=== PATIENT | female | born 1985 | race Caucasian/White ===

== ENCOUNTER 2017-02-02 18:01 | Emergency (ER) | payer MEDICAID ==
[~2017-02-02 18:01] MED LIST: ADDE30TA PO; DIAZ10TA PO; HYOS0.128 PO; METO25TA6 PO; PANT40TA3 PO; RANI150T PO; ZOFR8TAB PO
[2017-02-02 18:04] VITALS: BP 150/69; PULSE 116; RESP 18; TEMP 97.8; O2SAT 98
[2017-02-02] MEDS ORDERED: HYDROmorphone HCL PF 1 MG/ML VIAL IV PUSH ONE (19:30)
[2017-02-02] MEDS ORDERED: ONDANSETRON HCL 4 MG/2 ML VIAL IV PUSH ONE (19:30)
--- NOTE | 2017-02-02 19:32 | PD ---
HPI Chief Complaint: Musculoskeletal Complaint Time Seen by Provider: 19:20 Travel History International Travel<30 days: No Contact w/Intl Traveler<30days: No Traveled to known affect area: No History of Present Illness HPI 31-year-old female presents to the emergency department by private transportation for complaint of severe right upper extremity pain. Patient states that she felt completely normal and well on Tuesday evening when she went to bed. Patient reports that on Tuesday upon awakening she had a severe headache and right-sided neck pain and felt like fluid was draining from her head down into her neck and then noted development of right upper extremity pain. Subsequently patient has continued to have right upper extremity pain. Patient denies any swelling redness pallor or coolness. Patient denies any known trauma however she did awaken on Tuesday after having slept on her right upper extremity overnight. Patient states she has severe pain at the elbow and increased pain with range of motion of the elbow "not in the elbow but above and below the elbow". Patient has not noticed any deformity or swelling at the elbow. Patient denies any numbness, tingling, or weakness of the right upper extremity but does note severe pain with attempted range of motion of the right upper extremity. Patient denies any previous history of injury to the right upper extremity or to her neck and denies history of chronic headache. Patient states she has no headache at this time no visual disturbance yesterday she did have an episode of vomiting and took a Zofran. Patient has prescription Zofran for history of gastritis and possible gallbladder disease. Patient also took Aleve this morning at 10 AM. Patient awakened with headache yesterday morning has no headache today. Patient did not describe headache as thunderclap but sudden onset but was worse over for her. Patient denies any neck pain or stiffness at this time although did note right-sided neck pain yesterday with pain on range of motion yesterday. Patient denies any fever or chills. Patient denies any left upper extremity symptoms. Patient denies any lower extremity numbness tingling or weakness. Patient denies any injury. Patient denies any substance use. Patient denies any upper or lower back pain. Right upper extremity pain 8/10 in intensity. Patient holds her right upper extremity in abduction and elbow flexion for comfort. [facility] Past Medical History Narrative Medical Gastritis, gallbladder disease, kidney stones, ADHD, anxiety, hypertension, Ab1; occasional alcohol use, no tobacco use; nursing notes reviewed ADHD: Yes Anxiety: Yes Diminished Hearing: No Gastrointestinal Disorders: Yes (FREQUENT GASTRITIS) GERD: Yes Hypertension: Yes Kidney Stones: Yes Tetanus Vaccination: Unknown Influenza Vaccination: No ?: Not LMP: 01/21/17 : 2 Para: 1 Miscarriage: 1 Past Surgical History Surgical History: No Previous Surgery Social History Alcohol Use: Yes (VERY RARE) Tobacco Use: No Substance Use: No Allergies-Medications (Allergen,Severity, Reaction): Coded Allergies: penicillin G (Unverified Allergy, Mild, 02/02/17) Reported Meds & Prescriptions Reported Meds & Active Scripts Active Reported Hyoscyamine (Hyoscyamine Sulfate) 0.125 Mg Tab 0.125 Mg PO Q6H Ranitidine (Ranitidine HCl) 150 Mg Tab 150 Mg PO DAILY Metoprolol Succinate ER 24 HR (Metoprolol Succinate) 25 Mg Tab 25 Mg PO DAILY Diazepam 10 Mg Tab 10 Mg PO HS PRN Adderall (Amphetamine-Dextroamphetamine) 30 Mg Tab 30 Mg PO BID Avoid late evening doses. Space doses at least 4 to 6 hours if more than once/day dosing. Zofran (Ondansetron HCl) 8 Mg Tab 8 Mg PO DIRECTED Pantoprazole (Pantoprazole Sodium) 40 Mg Tab 40 Mg PO DAILY Review of Systems Except as stated in HPI: all other systems reviewed are Neg General / Constitutional: No: Fever, Chills Eyes: No: Diploplia HENT: Positive: Headaches, Neck Stiffness, Neck Pain (right sidedd) Cardiovascular: No: Chest Pain or Discomfort Respiratory: No: Shortness of Breath Gastrointestinal: Positive: Nausea, Vomiting (x1) Genitourinary: No: Dysuria, Flank Pain Musculoskeletal: Positive: Myalgias, Arthralgias, Limited ROM (RUE), Cramping, Pain (RUE), No: Weakness, Edema Skin: No Rash Neurologic: Positive: Headache (yesterday), No: Weakness, Dizziness, Syncope, Focal Abnormalities, Coordination Problem, Change in Mentation, Slurred Speech, Paresthesia, Seizures, Sensory Disturbance Psychiatric: Positive: Anxiety Hematologic/Lymphatic: No: Lymph Node Enlargement Physical Exam Narrative GENERAL: SKIN: Warm and dry. HEAD: Atraumatic. Normocephalic. EYES: Pupils equal and round. No scleral icterus. No injection or drainage. ENT: No nasal bleeding or discharge. Mucous membranes pink and moist. NECK: Trachea midline. No JVD. CARDIOVASCULAR: Regular rate and rhythm. RESPIRATORY: No accessory muscle use. Clear to auscultation. Breath sounds equal bilaterally. GASTROINTESTINAL: Abdomen soft, non-tender, nondistended. Hepatic and splenic margins not palpable. MUSCULOSKELETAL: Extremities without clubbing, cyanosis, or edema. No obvious deformities. 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 Patient holds right upper extremity in position of comfort with abduction and elbow flexion. No axillary lymphadenopathy. No exacerbation of symptoms with percussion over the ulnar nerve. NEUROLOGICAL: Awake and alert. No obvious cranial nerve deficits. Motor grossly within normal limits. Five out of 5 muscle strength in the arms and legs. Normal speech. PSYCHIATRIC: Appropriate mood and affect; insight and judgment normal. Data Data Last Documented VS Vital Signs Date Time Temp Pulse Resp B/P Pulse Ox O2 Delivery O2 Flow Rate FiO2 02/02/17 20:45 18 02/02/17 18:04 97.8 116 150/69 98 Room Air Orders ^ Saline Lock (02/02/17 19:20) Ct Brain W/O Iv Contrast(Rout) (02/02/17 ) Ct Cerv Spine W/O Contrast (02/02/17 ) Complete Blood Count With Diff (02/02/17 19:20) Basic Metabolic Panel (Bmp) (02/02/17 19:20) Ondansetron Inj (Zofran Inj) (02/02/17 19:30) Ed Urine Pregnancytest Poc (02/02/17 19:20) Hydromorphone Pf Inj (Dilaudid Pf Inj) (02/02/17 19:30) Elbow, Complete (4 Vws) (02/02/17 ) Ketorolac Inj (Toradol Inj) (02/02/17 21:30) Dexamethasone Inj (Decadron Inj) (02/02/17 22:15) Labs Laboratory Tests Test 02/02/17 19:35 White Blood Count 10.6 TH/MM3 Red Blood Count 5.22 MIL/MM3 Hemoglobin 15.9 GM/DL Hematocrit 46.9 % Mean Corpuscular Volume 89.8 FL Mean Corpuscular Hemoglobin 30.5 PG Mean Corpuscular Hemoglobin 33.9 % Concent Red Cell Distribution Width 12.3 % Platelet Count 349 TH/MM3 Mean Platelet Volume 7.8 FL Neutrophils (%) (Auto) 64.9 % Lymphocytes (%) (Auto) 25.6 % Monocytes (%) (Auto) 7.8 % Eosinophils (%) (Auto) 1.3 % Basophils (%) (Auto) 0.4 % Neutrophils # (Auto) 7.0 TH/MM3 Lymphocytes # (Auto) 2.7 TH/MM3 Monocytes # (Auto) 0.8 TH/MM3 Eosinophils # (Auto) 0.1 TH/MM3 Basophils # (Auto) 0.0 TH/MM3 CBC Comment DIFF FINAL Differential Comment Sodium Level 138 MEQ/L Potassium Level 3.4 MEQ/L Chloride Level 105 MEQ/L Carbon Dioxide Level 25.8 MEQ/L Anion Gap 7 MEQ/L Blood Urea Nitrogen 15 MG/DL Creatinine 0.68 MG/DL Estimat Glomerular Filtration 100 ML/MIN Rate Random Glucose 94 MG/DL Calcium Level 9.3 MG/DL MDM Medical Decision Making Medical Screen Exam Complete: Yes Emergency Medical Condition: Yes Medical Record Reviewed: Yes Interpretation(s) Last Impressions Head CT 02/02/17 0000 Signed Impressions: Service Date/Time: Thursday, February 02, 2017 20:24 - CONCLUSION: Normal examination. Viet Bryson MD Elbow X-Ray 02/02/17 0000 Signed Impressions: Service Date/Time: Thursday, February 02, 2017 19:39 - CONCLUSION: No acute disease. Viet Bryson MD Cervical Spine CT 02/02/17 0000 Signed Impressions: Service Date/Time: Thursday, February 02, 2017 20:24 - CONCLUSION: Normal examination. Viet Bryson MD CBC & BMP Diagram 02/02/17 19:35 Differential Diagnosis Musculoskeletal pain, cephalgia, cervical radiculopathy, neurapraxia, ulnar neuropathy, brachial plexopathy; also to consider septic arthritis although no focal joint pain or range of motion pain swelling redness or warmth and no findings for compartment syndrome and no injury. Narrative Course IV access obtained specimens collected and sent for resulting Patient administered Dilaudid 0.5 mg IV and Zofran 4 mg IV [id number] hCG negative Lab values in normal range CT brain and cervical spine imaging has been performed but reading remains pending; patient reports clinically improved. At 10:30 PM patient with marked improvement with range of motion and decreased symptoms affecting the right upper extremity no neck symptoms at this time no headache or head complaints at this time patient appears stable for outpatient management provided sling and will be given prescription for Lortab 5/325 as well as Medrol Dosepak area patient encouraged to use moist heat to the right upper extremity for the next 12-24 hours and then to follow-up with primary care provider. Patient encouraged to monitor temperature for with thermometer and return to the emergency department for increasing pain fever or any concerns No work 2 days Diagnosis Primary Impression: Musculoskeletal arm pain Qualified Code: M79.601 - Musculoskeletal pain of right upper extremity Referrals: Primary Care Physician 1 day Patient Instructions: Narcotic given in the ED, General Instructions Departure Forms: Tests/Procedures, Work Release Special Instructions: No work 2 days Additional Instructions: Take medication as prescribed Apply moist heat to right upper extremity Use sling No work 2 days Monitor temperature every 4 hours with thermometer take acetaminophen/Tylenol every 4 hours as needed for fever 100.4F or greater Follow-up with primary care provider call office in a.m. to schedule follow-up appointment this week Return to the emergency department for any concerns or change in condition such as fever or increased pain Med/Other Pt SpecificInfo: Prescription(s) given Scripts Methylprednisolone Dosepak (Medrol Dosepak)4 Mg Dspk4 Mg PO DIRECTED #1 DSPK Ref 0 Per Pharmacist direction Prov:Rosario Soto MD 02/02/17 Hydrocodone-Acetaminophen (Lortab)5-325 Mg Tab1 Tab PO Q6H PRN (PAIN) #10 TAB Ref 0 Prov:Rosario Soto MD 02/02/17 Disposition: 01 DISCHARGE HOME Condition: Stable Rosario Soto MD Feb 02, 2017 19:32
[2017-02-02 19:47] LABS: BASOPHIL % 0.4 % (0.0-2.0); EOSINOPHIL # 0.1 TH/MM3 (0-0.4); EOSINOPHIL % 1.3 % (0.0-4.0); HEMATOCRIT 46.9 % (35.0-46.0); HEMO FLAGS DIFF FINAL; LYMPH % 25.6 % (9.0-44.0); LYMPHOCYTE # 2.7 TH/MM3 (1.0-4.8); MEAN CELL VOLUME 89.8 FL (80.0-100.0); MEAN CORPUSCULAR HEMOGLOBIN 30.5 PG (27.0-34.0); MEAN CORPUSCULAR HGB CONC 33.9 % (32.0-36.0); MONO % 7.8 % (0.0-8.0); NEUT % 64.9 % (16.0-70.0); PLATELET COUNT 349 TH/MM3 (150-450); RED BLOOD COUNT 5.22 MIL/MM3 (4.00-5.30); RED CELL DISTRIBUTION WIDTH 12.3 % (11.6-17.2); WHITE BLOOD COUNT 10.6 TH/MM3 (4.0-11.0)
[2017-02-02 19:54] LABS: POTASSIUM 3.4 MEQ/L (3.5-5.1)
--- NOTE | 2017-02-02 19:56 | RADRPT ---
EXAM DATE/TIME: 02/02/2017 19:39 [facility] COMPARISON: No previous studies available for comparison. INDICATIONS : Right elbow pain shooting up to shoulder from unknown injury. MEDICAL HISTORY : None. SURGICAL HISTORY : None. ENCOUNTER: Initial ACUITY: 1 day PAIN SCORE: 10/10 LOCATION: Right elbow FINDINGS: Multiple view examination of the right elbow demonstrates no soft tissue swelling, joint effusion, or fracture. The osseous structures are in normal alignment. Bony mineralization is normal. CONCLUSION: No acute disease. Viet Bryson MD on February 02, 2017 at 19:54 Board Certified Radiologist. This report was verified electronically.
[2017-02-02 19:58] LABS: BICARBONATE 25.8 MEQ/L (21.0-32.0)
[2017-02-02 20:05] VITALS: BP 138/78; PULSE 100; RESP 18; O2SAT 99
[2017-02-02 20:40] VITALS: BP 125/85; PULSE 90; RESP 18; O2SAT 99
--- NOTE | 2017-02-02 21:20 | RADRPT ---
EXAM DATE/TIME: 02/02/2017 20:24 [facility] COMPARISON: No previous studies available for comparison. INDICATIONS : Cephalgia. RADIATION DOSE: 52.91 CTDIvol (mGy) MEDICAL HISTORY : Hypertension. SURGICAL HISTORY : None. ENCOUNTER: Initial ACUITY: 1 day PAIN SCALE: 5/10 LOCATION: cranial TECHNIQUE: Multiple contiguous axial images were obtained of the head. Using automated exposure control and adj ustment of the mA and/or kV according to patient size, radiation dose was kept as low as reasonably a chievable to obtain optimal diagnostic quality images. DICOM format image data is available electro nically for review and comparison. FINDINGS: CEREBRUM: The ventricles are normal for age. No evidence of midline shift, mass lesion, hemorrhage or acute in farction. No extra-axial fluid collections are seen. POSTERIOR FOSSA: The cerebellum and brainstem are intact. The 4th ventricle is midline. The cerebellopontine angle i s unremarkable. EXTRACRANIAL: The visualized portion of the orbits is intact. SKULL: The calvaria is intact. No evidence of skull fracture. CONCLUSION: Normal examination. Viet Bryson MD on February 02, 2017 at 21:18 Board Certified Radiologist. This report was verified electronically.
--- NOTE | 2017-02-02 21:22 | RADRPT ---
EXAM DATE/TIME: 02/02/2017 20:24 [facility] COMPARISON: No previous studies available for comparison. INDICATIONS : Neck pain and stiffness with right upper extremity pain and spasms. RADIATION DOSE: 23.57 CTDIvol (mGy) MEDICAL HISTORY : Hypertension. SURGICAL HISTORY : None. ENCOUNTER: Initial ACUITY: 1 day PAIN SCALE: 5/10 LOCATION: neck TECHNIQUE: Volumetric scanning of the cervical spine was performed. Multiplanar reconstructions in the sagittal, coronal and oblique axial planes were performed. Using automated exposure control and adjustment o f the mA and/or kV according to patient size, radiation dose was kept as low as reasonably achievable to obtain optimal diagnostic quality images. DICOM format image data is available electronically f or review and comparison. FINDINGS: VERTEBRAE: Normal vertebral body height. ALIGNMENT: No evidence of subluxation. C2-C3: The bony spinal canal is normal in size. No evidence of disc bulge or herniation. The neural forami na are bilaterally patent. C3-C4: The bony spinal canal is normal in size. No evidence of disc bulge or herniation. The neural forami na are bilaterally patent. C4-C5: The bony spinal canal is normal in size. No evidence of disc bulge or herniation. The neural forami na are bilaterally patent. C5-C6: The bony spinal canal is normal in size. No evidence of disc bulge or herniation. The neural forami na are bilaterally patent. C6-C7: The bony spinal canal is normal in size. No evidence of disc bulge or herniation. The neural forami na are bilaterally patent. C7-T1: The bony spinal canal is normal in size. No evidence of disc bulge or herniation. The neural forami na are bilaterally patent. CONCLUSION: Normal examination. Viet Bryson MD on February 02, 2017 at 21:19 Board Certified Radiologist. This report was verified electronically.
[2017-02-02] MEDS ORDERED: KETOROLAC TROMETHAMINE 30 MG/ML (IVP) VIAL IV PUSH ONE (21:30)
[2017-02-02 21:40] VITALS: BP 128/90; PULSE 86; RESP 16; O2SAT 100
[2017-02-02 22:05] VITALS: BP 132/79; PULSE 82; RESP 16; O2SAT 100
[2017-02-02] MEDS ORDERED: DEXAMETHASONE SOD PHOS 4 MG/ML VIAL IV PUSH ONE (22:15)
[2017-02-02] MEDS ORDERED: MEDR4PAK PO (22:33)
[2017-02-02] MEDS ORDERED: HYDR-3533 PO (22:33)
[2017-02-02 22:45] VITALS: BP 126/79; PULSE 86; RESP 16; O2SAT 100
== END 2017-02-02 23:00 | disposition home or self-care (01) ==
LOC: PHED 18:01
DX: M79.601 Pain in right arm (principal); I10 Essential (primary) hypertension; Z87.19 Personal history of other diseases of the digestive system; Z87.442 Personal history of urinary calculi; Z86.59 Personal history of other mental and behavioral disorders
CPT/HCPCS: 70450; 72125; 73080; 80048; 84703; 85025; 96374; 96375; 99285; J1100; J1170; J1885; J2405